=== PATIENT | male | born 1985 | race Caucasian/White ===

== ENCOUNTER 2018-08-25 13:18 | Emergency (ER) | payer BC ==
[2018-08-25 13:31] VITALS: BP 165/101
--- NOTE | 2018-08-25 13:39 | EDPHY ---
H & P Stated Complaint: L ankle/foot injury Time Seen by Provider: 08/25/18 13:36 HPI/ROS: HPI: This is a 32-year-old male who presents with Chief Complaint: Left ankle, foot injury Location: Left anterior ankle/foot Quality: Injury Duration: 1 hr prior to arrival Signs and Symptoms: + bruising, No bleeding, no radiation, no numbness, no weakness, no tingling, no incontinence, + decreased range of motion, + swelling , + pain, no fever Timing: Acute Severity: Moderate Context: Patient was sledding down a hill with he had his legs out in front of him when he hit directly into a tree at the bottom of both of his feet. He was wearing snow boots at the time. He reports that he felt immediate, moderate, nonradiating pain in the anterior portion of his left ankle and foot. Pain is increased with weight-bearing. Patient reports increased pain with dorsiflexion. Denies hitting his head, neck pain, loss of consciousness, nausea , vomiting, amnesia, dizziness. Modifying Factors: None Comment: ROS: A comprehensive 10 system review of systems is otherwise negative aside from elements mentioned in the history of present illness. MEDICAL/SURGICAL/SOCIAL HISTORY: Medical history: Hypertension Surgical history: Adenoidectomy Social history: Employed. Tobacco user. CONSTITUTIONAL: Well-developed, well-nourished, tall statured adult white male , wearing snow suit, awake and alert, no obvious distress HEENT: Atraumatic and normocephalic. NECK: supple, no midline tenderness, flexion 45 degrees, extension 45 degrees, right and left lateral flexion 45 degrees. Cardiovascular: Normal S1/S2, regular rate, regular rhythm, without murmur rub or gallop. PULMONARY/CHEST: Symmetrical and nontender. Clear to auscultation bilaterally. Good air movement. No accessory muscle usage. ABDOMEN: Soft, nondistended, nontender. EXTREMITIES: 2/2 pulses, strength 5/5, left Ankle: Mild anterior swelling with ecchymosis; Plantar flexion to 50, dorsiflexion to 20 but with increased pain in the anterior portion of the foot. Foot inversion to 35 degree. Moderate tenderness/swelling Anterior talofibular ligament. No tenderness/ swelling Calcaneofibular ligament, no tenderness/swelling posterior talofibular ligament, no tenderness/swelling posterior inferior tibiofibular ligament. Achilles tendon intact. DIP/PIP/MCP flexion/extension intact with good light touch sensation. no deformities, no clubbing, no cyanosis or edema. NEUROLOGICAL: no focal neuro deficits. GCS 15. Light touch sensation intact. SKIN: Warm and dry, no erythema. no rash. Good capillary refill. Source: Patient Exam Limitations: No limitations - Personal History Current Tetanus/Diphtheria Vaccine: Yes Current Tetanus Diphtheria and Acellular Pertussis (TDAP): Yes - Medical/Surgical History Hx Asthma: No Hx Chronic Respiratory Disease: No Hx Diabetes: No Hx Cardiac Disease: No Hx Renal Disease: No Hx Cirrhosis: No Hx Alcoholism: No Hx HIV/AIDS: No Hx Splenectomy or Spleen Trauma: No Other PMH: HTN, adenoidectomy - Social History Smoking Status: Never smoked Constitutional: Initial Vital Signs Temperature (C) 36.3 C 08/25/18 13:29 Heart Rate 75 08/25/18 13:29 Respiratory Rate 16 08/25/18 13:29 Blood Pressure 165/101 H 08/25/18 13:29 O2 Sat (%) 98 08/25/18 13:29 O2 Delivery Mode Room Air Allergies/Adverse Reactions: No Known Allergies Allergy (Unverified 08/25/18 13:28) Home Medications: Medication Instructions Recorded Bisoprolol Fumarate 08/25/18 Medical Decision Making - Diagnostics Imaging Results: Imaging Impressions Ankle X-Ray 08/25/18 13:39 Impression: Probable irregular os trigonum as a variant versus less likely fracture of the posterior process of the talus. No other findings for acute fracture. Mild soft tissue swelling and tibiotalar joint effusion. Results called and discussed with Enma Gates PA-C on August 25, 2018 at 2:57 p.m. Procedures: Procedure: Splint placement. A right Reyes boot and crutches were applied by the Emergency Room body technician/painter. After application of the splint I returned and re-examined the patient. The splint was adequately immobilizing the joint and distal to the splint the patient's circulation and sensation was intact. ED Course/Re-evaluation: Vital signs reviewed and show elevated blood pressure upon arrival. Likely due to pain. Ice pack applied and left ankle x-ray ordered Ankle x-ray my order shows no acute fracture with soft tissue swelling noted. Radiologist questioned Probable irregular os trigonum as a variant versus less likely fracture of the posterior process of the talus Placed in Reyes boot, crutches, toe-touch weight-bearing status, orthopedic follow-up No signs of neurovascular compromise/tenting of skin/compartment syndrome/ extremities and joints examined above and below area of concern and are neurovascularly intact. This patient was seen under the supervision of my secondary supervising physician. I evaluated care for this patient independently. Discussed this patient with Dr. Lowry who did not see the patient. Differential Diagnosis: Ankle injury differential diagnosis includes but is not limited to tibia fracture, fibula fracture, metatarsal fracture, LisFranc fracture, achilles tendon rupture, sprain. Departure - Departure Disposition: Home, Routine, Self-Care Clinical Impression: Grade 2 ankle sprain Qualifiers: Encounter type: initial encounter Laterality: left Qualified Code(s): S93.402A - Sprain of unspecified ligament of left ankle, initial encounter Condition: Good Instructions: Ankle Sprain (DC), Crutch Instructions (ED) Additional Instructions: Wear the Reyes boot while out of bed until pain free or seen by Orthopedics. Use crutches to aid in ambulation. Start with toe-touch weight-bearing status. Take Tylenol 650 mg every 4 hours and/or Ibuprofen 600 mg every 8 hours with food as needed for pain. Apply ice for 30 minutes at a time; 2-3 times per day for the next 1-2 days. Follow up with Orthopedics in 7-10 days if symptoms persist at which time they will evaluate and recommend with you if conservative management versus further imaging is indicated. The x-rays obtained in the emergency department today demonstrate no evidence of an obvious fracture. Sometimes fractures are not obvious on the initial set of x-rays performed in the ED. For this reason, you should have repeat x-rays performed in 7-10 days if you are having any pain exclude the possibility of an occult fracture. Referrals: Joan Lozoya MD [Medical Doctor] - As per Instructions
== END 2018-08-25 14:44 | disposition home or self-care (01) ==
DX: S93.402A Sprain of unspecified ligament of left ankle, initial encounter (principal); S99.922A Unspecified injury of left foot, initial encounter; V00.222A Sledder colliding with stationary object, initial encounter; Y93.23 Activity, snow (alpine) (downhill) skiing, snowboarding, sledding, tobogganing and snow tubing; Y92.828 Other wilderness area as the place of occurrence of the external cause; Y99.8 Other external cause status
CPT/HCPCS: L4386

== ENCOUNTER 2018-11-17 13:49 | Emergency (ER) | payer BC ==
[2018-11-17 13:55] VITALS: BP 146/91
--- NOTE | 2018-11-17 14:01 | EDPHY ---
H & P Time Seen by Provider: 11/17/18 13:57 HPI/ROS: CHIEF COMPLAINT: Right thumb injury HISTORY OF PRESENT ILLNESS: Less than 1 hr prior to arrival was at the batting cage in got hit in the right thumb by a pitch. REVIEW OF SYSTEMS: Otherwise negative PAST MEDICAL HISTORY: Hypertension, adenoid surgery Social history: Nonsmoker General Appearance: Alert and conversant, cooperative. Right thumb is tenderness at the IP with the dorsal abrasion 5 mm at the IP joint. Normal flexion and extension. Normal distal motor sensory and capillary refill. Remainder of the hand is nontender. Emergency Department course/MDM: Wound care and right thumb x-ray; negative Xray reviewed with patient. Smoking Status: Never smoked Constitutional: Initial Vital Signs Temperature (C) 37.0 C 11/17/18 13:52 Heart Rate 71 11/17/18 13:52 Respiratory Rate 16 11/17/18 13:52 Blood Pressure 146/91 H 11/17/18 13:52 O2 Sat (%) 94 11/17/18 13:52 O2 Delivery Mode Room Air Allergies/Adverse Reactions: No Known Allergies Allergy (Verified 11/17/18 13:52) Home Medications: Medication Instructions Recorded Bisoprolol Fumarate 08/25/18 MDM/Departure - MDM Imaging Results: Imaging Impressions Finger X-Ray 11/17/18 14:00 Impression: No acute osseous findings. Right thumb x-ray negative personally reviewed with the patient. Imaging: I viewed and interpreted images myself - Depart Disposition: Home, Routine, Self-Care Clinical Impression: right thumb contusion and abrasion Condition: Good Instructions: Abrasion (ED) Additional Instructions: Activity as tolerated. Please follow-up with referral hand specialist if you are having trouble with your thumb still after a week. Referrals: Naveed Chavez MD [Medical Doctor] - As per Instructions
== END 2018-11-17 14:43 | disposition home or self-care (01) ==
DX: S60.011A Contusion of right thumb without damage to nail, initial encounter (principal); S60.311A Abrasion of right thumb, initial encounter; W21.03XA Struck by baseball, initial encounter; Y92.39 Other specified sports and athletic area as the place of occurrence of the external cause